=== PATIENT | male | born 1955 | race Hispanic/Latino ===

== ENCOUNTER 2021-01-03 15:15 | Inpatient (IN) | payer OTHER, SELFPAY ==
[~2021-01-03] VITALS: Ht 167.6 cm; Wt 108.9 kg
[2021-01-03] MEDS ORDERED: CEFTRIAXONE 1G VIAL 1 GM in 0.9%NACL 100ML 100 ML IV ONE (15:30)
[2021-01-03] MEDS ORDERED: AZITHROMYCIN 250 MG TABLET PO ONE ×2 (15:30→16:34)
[2021-01-03] MEDS ORDERED: DEXAMETHASONE SOD PHOSPHATE 4 MG/ML 1ML VIAL IVP ONE (15:30)
[2021-01-03] MEDS ORDERED: CEFTRIAXONE 1G VIAL IVP SCH (15:30)
[2021-01-03 15:45] LABS: BASOPHILS % (AUTO) 0.2 % (0.0-5.0); HEMATOCRIT 37.6 % (42-54); LYMPHOCYTES % (AUTO) 16.4 % (21.0-51.0); MEAN CORPUSCULAR HEMOGLOBIN 28.8 pg (27.0-33.0); MEAN CORPUSCULAR HGB CONC 32.7 g/dL (32.0-36.0); MEAN CORPUSCULAR VOLUME 88.1 fL (79-99); MONOCYTES % (AUTO) 10.7 % (3.0-13.0); NEUTROPHILS % (AUTO) 72.3 % (40.0-77.0); PLATELET COUNT (AUTO) 64 K/uL (130-400); RED BLOOD CELL COUNT(AUTO) 4.27 MIL/uL (4.50-6.20); RED CELL DISTRIBUTION WIDTH 14.3 % (11.0-15.5); WHITE BLOOD COUNT (AUTO) 4.6 K/uL (4.8-10.8)
[2021-01-03 15:55] LABS: ABG BASE EXCESS -1.9 mmol/L (-2.0-3.0); ABG HCO3 21.5 mmol/L (21.0-28.0); ABG OXYGEN SATURATION 94.8 % (95.0-99.0); ABG PCO2 33 mmHg (35-48)
[2021-01-03 15:59] LABS: CREATININE 1.3 mg/dL (0.5-1.5); POTASSIUM 4.5 mmol/L (3.5-5.1)
[2021-01-03 16:04] LABS: ALBUMIN 2.3 g/dL (3.5-5.0); BILIRUBIN,TOTAL 2.7 mg/dL (0.2-1.0); CRP QUANTITATIVE 118.5 mg/L (0.00-9.0); TOTAL PROTEIN, SERUM 6.6 g/dL (6.0-8.3)
[2021-01-03] MEDS ORDERED: ONDANSETRON 4MG INJ IV PRN (16:30)
[2021-01-03] MEDS ORDERED: ERGOCALCIFEROL (VITAMIN D2) 50,000 UNIT CAPSULE PO ONE (16:30)
[2021-01-03] MEDS: CEFTRIAXONE 1G VIAL IVP SCH (16:30)
[2021-01-03] MEDS ORDERED: ACETAMINOPHEN 325 MG TAB PO PRN ×2 (16:30)
[2021-01-03] MEDS: DEXAMETHASONE SOD PHOSPHATE 4 MG/ML 1ML VIAL IVP SCH (16:30)
[2021-01-03] MEDS ORDERED: DEXAMETHASONE SOD PHOSPHATE 4 MG/ML 1ML VIAL ONE (16:34)
[2021-01-03 16:48] LABS: ERYTHROCYTE SEDIMENTATION RATE 44 MM/HR (0-20)
[2021-01-03 16:57] LABS: INR 1.22 (0.85-1.15); PROTHROMBIN TIME 13.1 SEC (9.6-11.6)
[2021-01-03 16:58] LABS: PARTIAL THROMBOPLASTIN TIME 37.7 SEC (26.3-35.5)
[2021-01-03] MEDS ORDERED: ERGOCALCIFEROL (VITAMIN D2) 50,000 UNIT CAPSULE ONE (18:38)
[2021-01-03] MEDS: DOXYCYCLINE 100MG+NS 250ML IV SCH (18:45)
[2021-01-03] MEDS: FAMOTIDINE 20MG VIAL IV SCH (20:51)
[2021-01-03] MEDS: ENOXAPARIN SODIUM 40 MG/0.4 ML SYRINGE SQ SCH (20:52)
[2021-01-03 22:37] VITALS: BP 147/72
[2021-01-04] VITALS (7 sets, daily range): BP systolic 133–153; BP diastolic 67–88
[2021-01-04] MEDS: CEFTRIAXONE 1G VIAL IVP SCH ×2 (04:41→17:14)
[2021-01-04] MEDS: DOXYCYCLINE 100MG+NS 250ML IV SCH ×2 (04:43→17:14)
[2021-01-04] MEDS: ZINC SULFATE 220 CAPSULE PO SCH (08:22)
[2021-01-04] MEDS: ASCORBIC ACID 500 MG TAB PO SCH (08:22)
[2021-01-04] MEDS: FAMOTIDINE 20MG VIAL IV SCH ×2 (08:22→20:15)
[2021-01-04] MEDS: ENOXAPARIN SODIUM 40 MG/0.4 ML SYRINGE SQ SCH ×2 (08:22→20:15)
[2021-01-04] MEDS: DEXAMETHASONE SOD PHOSPHATE 4 MG/ML 1ML VIAL IVP SCH (17:14)
[2021-01-05] MEDS: DOXYCYCLINE 100MG+NS 250ML IV SCH ×2 (04:46→16:05)
[2021-01-05] MEDS: CEFTRIAXONE 1G VIAL IVP SCH ×2 (04:46→16:04)
[2021-01-05 04:52] VITALS: BP 143/64
[2021-01-05 07:00] VITALS: BP 149/73
[2021-01-05] MEDS: ZINC SULFATE 220 CAPSULE PO SCH (08:31)
[2021-01-05] MEDS: ASCORBIC ACID 500 MG TAB PO SCH (08:31)
[2021-01-05] MEDS: FAMOTIDINE 20MG VIAL IV SCH ×2 (08:31→21:25)
[2021-01-05] MEDS: ENOXAPARIN SODIUM 40 MG/0.4 ML SYRINGE SQ SCH ×3 (08:32→22:55)
[2021-01-05 11:00] VITALS: BP 140/88
[2021-01-05] MEDS ORDERED: PHARMACY COMMUNICATION MISC SCH (12:00)
[2021-01-05] MEDS ORDERED: TOCILIZUMAB 400MG VIAL 800 MG in 0.9%NACL 100ML 60 ML IV SCH (12:30)
[2021-01-05] MEDS ORDERED: ALBUTEROL INHALER 90MCG/INH IH PRN (12:30)
[2021-01-05 15:00] VITALS: BP 149/87
[2021-01-05] MEDS: DEXAMETHASONE SOD PHOSPHATE 4 MG/ML 1ML VIAL IVP SCH (16:04)
[2021-01-05 19:35] VITALS: BP 140/77
[2021-01-06] VITALS (7 sets, daily range): BP systolic 129–148; BP diastolic 45–94
[2021-01-06] MEDS ORDERED: SODIUM CHLORIDE 3% FOR INHALATION 4 ML/AMP VIAL.NEB IH ONE (03:24)
[2021-01-06] MEDS: CEFTRIAXONE 1G VIAL IVP SCH ×2 (03:52→17:18)
[2021-01-06] MEDS: DOXYCYCLINE 100MG+NS 250ML IV SCH ×2 (03:52→17:18)
[2021-01-06 04:09] LABS: HEMATOCRIT 36.3 % (42-54); MEAN CORPUSCULAR HEMOGLOBIN 28.9 pg (27.0-33.0); MEAN CORPUSCULAR HGB CONC 33.3 g/dL (32.0-36.0); MEAN CORPUSCULAR VOLUME 86.8 fL (79-99); PLATELET COUNT (AUTO) 97 K/uL (130-400); RED BLOOD CELL COUNT(AUTO) 4.18 MIL/uL (4.50-6.20); RED CELL DISTRIBUTION WIDTH 14.3 % (11.0-15.5); WHITE BLOOD COUNT (AUTO) 2.2 K/uL (4.8-10.8)
[2021-01-06 04:30] LABS: CREATININE 1.1 mg/dL (0.5-1.5); POTASSIUM 4.6 mmol/L (3.5-5.1)
[2021-01-06 04:42] LABS: LYMPHOCYTES % (MANUAL) 20 % (22-44); MONOCYTES % (MANUAL) 1 % (2-9); SEGMENTED NEUTROPHILS % 79 % (40-70)
[2021-01-06 04:43] LABS: MAN.DIFF COMMENT-IMPRESSION MANUAL DIFFERENTIAL; PLATELET MORPHOLOGY COMMENT DECREASED
[2021-01-06] MEDS: FAMOTIDINE 20MG VIAL IV SCH ×2 (09:37→20:30)
[2021-01-06] MEDS: ENOXAPARIN SODIUM 40 MG/0.4 ML SYRINGE SQ SCH ×2 (09:38→20:31)
[2021-01-06] MEDS: DEXAMETHASONE SOD PHOSPHATE 4 MG/ML 1ML VIAL IVP SCH (17:18)
[2021-01-06] MEDS: INSULIN HUMULIN R 100 UNIT/ML 3ML SQ SCH (20:29)
[2021-01-06] MEDS ORDERED: LOSA100T58 PO (23:22)
[2021-01-07 03:48] VITALS: BP 150/63
[2021-01-07 04:01] LABS: HEMATOCRIT 37.9 % (42-54); MEAN CORPUSCULAR HEMOGLOBIN 28.7 pg (27.0-33.0); MEAN CORPUSCULAR HGB CONC 32.2 g/dL (32.0-36.0); MEAN CORPUSCULAR VOLUME 89.2 fL (79-99); RED BLOOD CELL COUNT(AUTO) 4.25 MIL/uL (4.50-6.20); RED CELL DISTRIBUTION WIDTH 14.6 % (11.0-15.5); WHITE BLOOD COUNT (AUTO) 1.9 K/uL (4.8-10.8)
[2021-01-07 04:18] LABS: CREATININE 1.1 mg/dL (0.5-1.5); POTASSIUM 4.8 mmol/L (3.5-5.1)
[2021-01-07] MEDS: CEFTRIAXONE 1G VIAL IVP SCH ×2 (04:23→16:57)
[2021-01-07] MEDS: DOXYCYCLINE 100MG+NS 250ML IV SCH ×2 (04:23→16:57)
[2021-01-07] MEDS: INSULIN HUMULIN R 100 UNIT/ML 3ML SQ SCH ×4 (05:48→21:00)
[2021-01-07 07:51] LABS: HEMOGLOBIN A1C 5.8 % (4.0-6.0)
[2021-01-07 08:00] VITALS: BP 146/83
[2021-01-07] MEDS ORDERED: PHARMACY COMMUNICATION MISC SCH (08:00)
[2021-01-07] MEDS: ENOXAPARIN SODIUM 40 MG/0.4 ML SYRINGE SQ SCH ×2 (08:56→20:25)
[2021-01-07] MEDS: LOSARTAN 100 MG TABLET PO SCH (08:56)
[2021-01-07] MEDS: FAMOTIDINE 20MG VIAL IV SCH ×2 (08:56→20:25)
[2021-01-07 11:50] VITALS: BP 141/61
[2021-01-07 12:59] LABS: CREATININE 1.3 mg/dL (0.5-1.5); POTASSIUM 4.5 mmol/L (3.5-5.1)
[2021-01-07 16:00] VITALS: BP 147/57
[2021-01-07] MEDS: DEXAMETHASONE SOD PHOSPHATE 4 MG/ML 1ML VIAL IVP SCH (16:58)
[2021-01-07 20:27] VITALS: BP 161/84
[2021-01-07 23:42] VITALS: BP 169/88
[2021-01-08] VITALS (7 sets, daily range): BP systolic 117–166; BP diastolic 57–96
[2021-01-08] MEDS: CEFTRIAXONE 1G VIAL IVP SCH ×2 (04:33→17:03)
[2021-01-08] MEDS: DOXYCYCLINE 100MG+NS 250ML IV SCH ×2 (04:34→17:03)
[2021-01-08 05:30] LABS: BASOPHILS % (AUTO) 0.5 % (0.0-5.0); HEMATOCRIT 37.9 % (42-54); LYMPHOCYTES % (AUTO) 23.7 % (21.0-51.0); MEAN CORPUSCULAR HEMOGLOBIN 28.7 pg (27.0-33.0); MEAN CORPUSCULAR HGB CONC 32.7 g/dL (32.0-36.0); MEAN CORPUSCULAR VOLUME 87.7 fL (79-99); MONOCYTES % (AUTO) 14.2 % (3.0-13.0); PLATELET COUNT (AUTO) 101 K/uL (130-400); RED BLOOD CELL COUNT(AUTO) 4.32 MIL/uL (4.50-6.20); RED CELL DISTRIBUTION WIDTH 14.5 % (11.0-15.5); WHITE BLOOD COUNT (AUTO) 1.9 K/uL (4.8-10.8)
[2021-01-08 05:50] LABS: BILIRUBIN,TOTAL 1.1 mg/dL (0.2-1.0); CREATININE 1.2 mg/dL (0.5-1.5); POTASSIUM 4.7 mmol/L (3.5-5.1); TOTAL PROTEIN, SERUM 6.1 g/dL (6.0-8.3)
[2021-01-08] MEDS: INSULIN HUMULIN R 100 UNIT/ML 3ML SQ SCH ×4 (06:14→20:03)
[2021-01-08] MEDS ORDERED: DEXTROSE 5%-WATER 1,000 ML IV SCH (08:30)
[2021-01-08] MEDS: ENOXAPARIN SODIUM 40 MG/0.4 ML SYRINGE SQ SCH ×2 (08:36→20:11)
[2021-01-08] MEDS: LOSARTAN 100 MG TABLET PO SCH (08:36)
[2021-01-08] MEDS: FAMOTIDINE 20MG VIAL IV SCH ×2 (08:36→20:11)
[2021-01-08] MEDS: DEXAMETHASONE SOD PHOSPHATE 4 MG/ML 1ML VIAL IVP SCH (17:02)
[2021-01-08] MEDS: HYDRALAZINE 20MG/ML VIAL IV PRN (20:11)
[2021-01-09 03:48] LABS: HEMATOCRIT 37.8 % (42-54); LYMPHOCYTES % (AUTO) 21.7 % (21.0-51.0); MEAN CORPUSCULAR HEMOGLOBIN 29.1 pg (27.0-33.0); MEAN CORPUSCULAR HGB CONC 33.1 g/dL (32.0-36.0); MEAN CORPUSCULAR VOLUME 88.1 fL (79-99); MONOCYTES % (AUTO) 11.4 % (3.0-13.0); NEUTROPHILS % (AUTO) 64.2 % (40.0-77.0); PLATELET COUNT (AUTO) 93 K/uL (130-400); RED BLOOD CELL COUNT(AUTO) 4.29 MIL/uL (4.50-6.20); RED CELL DISTRIBUTION WIDTH 14.7 % (11.0-15.5); WHITE BLOOD COUNT (AUTO) 1.8 K/uL (4.8-10.8)
[2021-01-09 04:00] LABS: BILIRUBIN,TOTAL 1.1 mg/dL (0.2-1.0); CREATININE 1.1 mg/dL (0.5-1.5); POTASSIUM 4.6 mmol/L (3.5-5.1); TOTAL PROTEIN, SERUM 5.9 g/dL (6.0-8.3)
[2021-01-09 04:10] VITALS: BP 136/64
[2021-01-09] MEDS: CEFTRIAXONE 1G VIAL IVP SCH ×2 (04:53→16:12)
[2021-01-09] MEDS: DOXYCYCLINE 100MG+NS 250ML IV SCH ×2 (04:53→16:12)
[2021-01-09] MEDS: INSULIN HUMULIN R 100 UNIT/ML 3ML SQ SCH ×4 (06:13→20:47)
[2021-01-09 07:26] VITALS: BP 149/74
[2021-01-09] MEDS: FAMOTIDINE 20MG VIAL IV SCH ×2 (09:07→20:51)
[2021-01-09] MEDS: LOSARTAN 100 MG TABLET PO SCH (09:08)
[2021-01-09] MEDS: ENOXAPARIN SODIUM 40 MG/0.4 ML SYRINGE SQ SCH ×2 (09:08→20:52)
[2021-01-09 11:35] VITALS: BP 130/68
[2021-01-09 15:45] VITALS: BP 141/67
[2021-01-09] MEDS: DEXAMETHASONE SOD PHOSPHATE 4 MG/ML 1ML VIAL IVP SCH (16:12)
[2021-01-09 20:25] VITALS: BP 153/88
[2021-01-09 23:56] VITALS: BP 166/88
[2021-01-10] MEDS: HYDRALAZINE 20MG/ML VIAL IV PRN (00:14)
[2021-01-10 03:49] VITALS: BP 133/68
[2021-01-10 03:55] LABS: BASOPHILS % (AUTO) 0.5 % (0.0-5.0); LYMPHOCYTES % (AUTO) 19.5 % (21.0-51.0); MEAN CORPUSCULAR HEMOGLOBIN 28.8 pg (27.0-33.0); MEAN CORPUSCULAR HGB CONC 32.6 g/dL (32.0-36.0); MEAN CORPUSCULAR VOLUME 88.2 fL (79-99); MONOCYTES % (AUTO) 16.5 % (3.0-13.0); NEUTROPHILS % (AUTO) 61.5 % (40.0-77.0); PLATELET COUNT (AUTO) 95 K/uL (130-400); RED BLOOD CELL COUNT(AUTO) 4.31 MIL/uL (4.50-6.20); RED CELL DISTRIBUTION WIDTH 14.7 % (11.0-15.5)
[2021-01-10 04:09] LABS: ALBUMIN 2.1 g/dL (3.5-5.0); BILIRUBIN,TOTAL 1.3 mg/dL (0.2-1.0); CREATININE 1.1 mg/dL (0.5-1.5); POTASSIUM 4.8 mmol/L (3.5-5.1); TOTAL PROTEIN, SERUM 5.9 g/dL (6.0-8.3)
[2021-01-10] MEDS: DOXYCYCLINE 100MG+NS 250ML IV SCH (04:15)
[2021-01-10] MEDS: CEFTRIAXONE 1G VIAL IVP SCH (04:15)
[2021-01-10] MEDS: INSULIN HUMULIN R 100 UNIT/ML 3ML SQ SCH ×4 (05:28→20:28)
[2021-01-10 07:46] VITALS: BP 143/71
[2021-01-10] MEDS: FAMOTIDINE 20MG VIAL IV SCH ×2 (09:32→20:28)
[2021-01-10] MEDS: LOSARTAN 100 MG TABLET PO SCH (09:32)
[2021-01-10] MEDS: ENOXAPARIN SODIUM 40 MG/0.4 ML SYRINGE SQ SCH ×2 (09:33→20:30)
[2021-01-10 11:33] VITALS: BP 135/63
[2021-01-10] MEDS: DEXAMETHASONE 4 MG TAB PO SCH (12:59)
[2021-01-10] MEDS ORDERED: FLUCONAZOLE 100 MG TAB PO SCH (14:30)
[2021-01-10 15:35] VITALS: BP 123/71
[2021-01-10 19:39] VITALS: BP 185/76
[2021-01-10 23:42] VITALS: BP 176/78
[2021-01-11 04:00] VITALS: BP 149/78
[2021-01-11 04:28] LABS: HEMATOCRIT 38.4 % (42-54); LYMPHOCYTES % (AUTO) 17.4 % (21.0-51.0); MEAN CORPUSCULAR HGB CONC 32.8 g/dL (32.0-36.0); MEAN CORPUSCULAR VOLUME 88.3 fL (79-99); MONOCYTES % (AUTO) 11.6 % (3.0-13.0); NEUTROPHILS % (AUTO) 69.4 % (40.0-77.0); PLATELET COUNT (AUTO) 81 K/uL (130-400); RED BLOOD CELL COUNT(AUTO) 4.35 MIL/uL (4.50-6.20); RED CELL DISTRIBUTION WIDTH 15.2 % (11.0-15.5); WHITE BLOOD COUNT (AUTO) 1.9 K/uL (4.8-10.8)
[2021-01-11 04:52] LABS: ALBUMIN 2.1 g/dL (3.5-5.0); BILIRUBIN,TOTAL 1.6 mg/dL (0.2-1.0); POTASSIUM 5.1 mmol/L (3.5-5.1); TOTAL PROTEIN, SERUM 5.8 g/dL (6.0-8.3)
[2021-01-11] MEDS: INSULIN HUMULIN R 100 UNIT/ML 3ML SQ SCH (05:47)
[2021-01-11 07:41] VITALS: BP 177/82
[2021-01-11] MEDS: FAMOTIDINE 20MG VIAL IV SCH (08:14)
[2021-01-11] MEDS: LOSARTAN 100 MG TABLET PO SCH (08:16)
[2021-01-11] MEDS: DEXAMETHASONE 4 MG TAB PO SCH (08:16)
[2021-01-11] MEDS: ENOXAPARIN SODIUM 40 MG/0.4 ML SYRINGE SQ SCH (08:17)
[2021-01-11] MEDS ORDERED: FLUCONAZOLE 100 MG TAB PO SCH (09:00)
[2021-01-11 11:14] VITALS: BP 164/77
[2021-01-11] MEDS ORDERED: PANT40TA55 PO (11:52)
[2021-01-11] MEDS ORDERED: AEC81 PO (11:52)
[2021-01-11] MEDS ORDERED: DEXA6TAB PO (11:52)
== END 2021-01-11 16:06 | disposition home or self-care (01) | DRG 177 ==
LOC: EDH 15:15 → EDHIP 15:16 → 2AH 22:30
PROVIDERS: ADMIT Internal Medicine; ATTEND Internal Medicine
PROC: XW033H5 Introduction of Tocilizumab into Peripheral Vein, Percutaneous Approach, New Technology Group 5 (ICD-10-PCS; principal; 2021-01-05)
PROC: 5A0935A Assistance with Respiratory Ventilation, Less than 24 Consecutive Hours, High Flow/Velocity Cannula (ICD-10-PCS; 2021-01-06)
PROC: 5A0935A Assistance with Respiratory Ventilation, Less than 24 Consecutive Hours, High Flow/Velocity Cannula (ICD-10-PCS; 2021-01-08)
DX: U07.1 COVID-19 (principal); J12.82 Pneumonia due to coronavirus disease 2019; J96.01 Acute respiratory failure with hypoxia; D68.59 Other primary thrombophilia; R78.81 Bacteremia; D68.8 Other specified coagulation defects; E87.0 Hyperosmolality and hypernatremia; D61.818 Other pancytopenia; I47.2 Ventricular tachycardia; B37.0 Candidal stomatitis; D69.6 Thrombocytopenia, unspecified; I10 Essential (primary) hypertension; E66.9 Obesity, unspecified; Z68.38 Body mass index [BMI] 38.0-38.9, adult; B96.89 Other specified bacterial agents as the cause of diseases classified elsewhere; R73.9 Hyperglycemia, unspecified; B95.7 Other staphylococcus as the cause of diseases classified elsewhere
CPT/HCPCS: 36415; 36600; 71045; 80048; 80053; 82803; 82948; 83036; 83735; 84145; 84484; 85025; 85027; 85378; 85610; 85651; 85730; 86140; 87040; 87071; 87077; 87186; 87205; 87486; 87581; 87633; 87635; 87798; 93005; 93306; 93356; 94760; C9803; G0378; J0360; J0696; J1100; J1650; J1815; J3490; J8540

== ENCOUNTER 2023-04-10 08:09 | Day surgery (SDC) | payer OTHER ==
[2023-04-10] VITALS (9 sets, daily range): BP systolic 53–158; BP diastolic 50–67; PULSE 52–60; RESP 14–16
[~2023-04-10] VITALS: Ht 167.6 cm; Wt 98.9 kg
[~2023-04-10 08:09] MED LIST: LISI10TA24 PO
[2023-04-10] MEDS: 0.9%NACL 1000ML 1,000 ML IV ONE (10:15)
[2023-04-10] MEDS ORDERED: PROPOFOL 10 MG/ML 20ML VIAL IV ONE ×2 (10:56)
== END 2023-04-10 12:42 | disposition home or self-care (01) ==
LOC: ENDO 08:09
PROVIDERS: ATTEND Internal Medicine Gastroenterology
DX: Z12.11 Encounter for screening for malignant neoplasm of colon (principal); K29.50 Unspecified chronic gastritis without bleeding; K44.9 Diaphragmatic hernia without obstruction or gangrene; K74.60 Unspecified cirrhosis of liver; I10 Essential (primary) hypertension; E78.2 Mixed hyperlipidemia; E55.9 Vitamin D deficiency, unspecified; N52.9 Male erectile dysfunction, unspecified; R12 Heartburn; E66.01 Morbid (severe) obesity due to excess calories; Z68.36 Body mass index [BMI] 36.0-36.9, adult; Z88.0 Allergy status to penicillin; Z83.3 Family history of diabetes mellitus; Z79.899 Other long term (current) drug therapy; Z98.890 Other specified postprocedural states
CPT/HCPCS: 43239; 45378; J7030 ×2; J2704 ×2; A4620; A4215; A4223; A7002; A4222; A4221; A4663; A4606; J3490

== ENCOUNTER 2023-04-11 10:32 | Day surgery (SDC) | payer OTHER ==
[2023-04-11] VITALS (12 sets, daily range): BP systolic 112–147; BP diastolic 48–67; PULSE 62–67; RESP 14–18
[~2023-04-11] VITALS: Ht 167.6 cm; Wt 98.9 kg
[2023-04-11] MEDS: 0.9%NACL 1000ML 1,000 ML IV ONE (11:48)
[2023-04-11] MEDS ORDERED: PROPOFOL 10 MG/ML 20ML VIAL IV ONE (12:25)
[2023-04-11] MEDS ORDERED: GLYCOPYRROLATE 0.2 MG/ML 5 ML VIAL ONE (12:25)
== END 2023-04-11 14:30 | disposition home or self-care (01) ==
LOC: ENDO 10:32 → DAH 10:33 → ENDO 14:30
PROVIDERS: ATTEND Internal Medicine Gastroenterology
DX: Z09 Encounter for follow-up examination after completed treatment for conditions other than malignant neoplasm (principal); K57.30 Diverticulosis of large intestine without perforation or abscess without bleeding; K64.1 Second degree hemorrhoids; K74.69 Other cirrhosis of liver; R12 Heartburn; I10 Essential (primary) hypertension; E66.01 Morbid (severe) obesity due to excess calories; E55.9 Vitamin D deficiency, unspecified; E78.2 Mixed hyperlipidemia; Z88.0 Allergy status to penicillin; Z98.890 Other specified postprocedural states; Z68.36 Body mass index [BMI] 36.0-36.9, adult; Z79.899 Other long term (current) drug therapy
CPT/HCPCS: 45378; J7030 ×2; J2704; J3490; A4620; A4215 ×2; A7002; A4222; A4221; A4663; A4216; A4606; G0121

== ENCOUNTER 2024-09-09 06:39 | Day surgery (SDC) | payer OTHER ==
[~2024-09-09] VITALS: Ht 167.6 cm; Wt 86.2 kg
[2024-09-09] VITALS (12 sets, daily range): BP systolic 91–119; BP diastolic 40–56; PULSE 57–77; RESP 14–18; TEMP 96.8–97.7
[~2024-09-09 06:39] MED LIST changes: +0.9%NACL 1000ML 1,000 ML IV ONE; +CLOP-31 PO; +CYAN-52 PO; +FOLI1 PO; +FURO40TA7 PO; +IPRA3AMP24 IH; +LACT PO; -LISI10TA24 PO; +Midodrine Hcl PO; +PANT20TA18 PO; +POTA-192 PO; +SIMV-43 PO; +SPIR25TA6 PO
[2024-09-09] MEDS ORDERED: RIFA550T PO (07:27)
[2024-09-09] MEDS ORDERED: SPIR25TA6 PO (07:27)
== END 2024-09-09 11:35 | disposition home or self-care (01) ==
LOC: DAH 06:39 → ENDO 06:39
PROVIDERS: ATTEND Internal Medicine
DX: D50.9 Iron deficiency anemia, unspecified (principal); K29.80 Duodenitis without bleeding; K29.50 Unspecified chronic gastritis without bleeding; K62.1 Rectal polyp; K64.2 Third degree hemorrhoids; K64.4 Residual hemorrhoidal skin tags; K74.60 Unspecified cirrhosis of liver; I10 Essential (primary) hypertension; K26.9 Duodenal ulcer, unspecified as acute or chronic, without hemorrhage or perforation; E78.5 Hyperlipidemia, unspecified; E87.5 Hyperkalemia; D69.59 Other secondary thrombocytopenia; E66.01 Morbid (severe) obesity due to excess calories; K76.82 Hepatic encephalopathy; K44.9 Diaphragmatic hernia without obstruction or gangrene; R93.5 Abnormal findings on diagnostic imaging of other abdominal regions, including retroperitoneum; K80.20 Calculus of gallbladder without cholecystitis without obstruction; K57.30 Diverticulosis of large intestine without perforation or abscess without bleeding; Z68.29 Body mass index [BMI] 29.0-29.9, adult; E55.9 Vitamin D deficiency, unspecified; Z98.890 Other specified postprocedural states; Z79.899 Other long term (current) drug therapy
CPT/HCPCS: 45385; 43239; J7030; J2704 ×2; A4620; A4215; J3490